=== PATIENT | male | born 1940 | race Caucasian/White ===

== ENCOUNTER 2021-01-08 08:07 | Day surgery (SDC) | payer MEDICARE, OTHER ==
[~2021-01-08 08:07] MED LIST: Lactated Ringers 1,000 ML IV SCH; Lidocaine 1%/Sod Bicarbonate in NS 8.4% 1 ML Syringe IDERM PRN; Sodium Chloride 0.9% 10 ML Syringe FLUSH PRN
--- NOTE | 2021-01-08 10:21 | PCM.PREANE ---
Preanesthetic Assessment - Procedure Proposed Procedure: EGD & colonoscopy - Anesthesia/Transfusion/Family Hx Anesthesia History: Prior Anesthesia Without Reaction Family History of Anesthesia Reaction: No Transfusion History: Prior Transfusion Without Reaction Intubation History: Unknown - Review of Systems General: No Symptoms Pulmonary: No Symptoms Cardiovascular: No Symptoms Gastrointestinal: No Symptoms Neurological: No Symptoms Other: Reports: Easy Bleeding, Easy Bruising, Diabetes - Physical Assessment NPO Status Date: 01/07/21 NPO Status Time: 20:40 Vital Signs: Last Vital Signs Temp 36.6 C 01/08/21 08:00 Pulse 57 L 01/08/21 08:00 Resp 16 01/08/21 08:00 BP 141/69 H 01/08/21 08:00 Pulse Ox 95 01/08/21 08:00 Height: 1.8 m Weight: 87.09 kg Mental Status: Alert & Oriented x3 Airway Class: Mallampati = 1 Dentition: Reports: Normal Dentition Thyro-Mental Finger Breadths: 3 Mouth Opening Finger Breadths: 5 ROM/Head Extension: Full Lungs: Clear to Auscultation, Normal Respiratory Effort Cardiovascular: Regular Rate, Regular Rhythm - Allergies Allergies/Adverse Reactions: Allergies Allergy/AdvReac Type Severity Reaction Status Date / Time JUDI Inhibitors Allergy Other Verified 01/08/21 08:56 adhesive tape Allergy Rash Verified 01/08/21 08:56 - Blood Blood Available: No - Anesthesia Plan Pre-Op Medication Ordered: None Beta Sparkle: Metoprolol - Acknowledgements Anesthesia Type Planned: MAC Pt an Appropriate Candidate for the Planned Anesthesia: Yes Alternatives and Risks of Anesthesia Discussed w Pt/Guardian: Yes Pt/Guardian Understands and Agrees with Anesthesia Plan: Yes PreAnesthesia Questionnaire HEENT History: Reports: Cataract Cardiovascular History: Reports: Afib, CAD, High Cholesterol, Hypertension, Other (See Below) Other Cardiovascular History: cardioverter, defibrilator Respiratory History: Reports: Other (See Below) Other Respiratory History: lung nodule Gastrointestinal History: Reports: Diverticulosis, Gastritis Psychiatric History: Reports: Depression Endocrine/Metabolic History: Reports: Diabetes, Type I - Past Surgical History HEENT Surgical History: Reports: Cataract Surgery, Naso-Sinus Surgery Cardiovascular Surgical History: Reports: Coronary Artery Bypass GI Surgical History: Reports: Cholecystectomy, Colonoscopy, EGD, Hernia, Inguinal Other Neurological Surgeries/Procedures: kyphoplasty Other Musculoskeletal Surgeries/Procedures:: rib fx, tietze disease, kyphoplasty - SUBSTANCE USE Tobacco Use Status *Q: Never Tobacco User Tobacco Use Within Last Twelve Months: No Recreational Drug Use History: No - HOME MEDS Home Medications: Home Meds Acetaminophen [Tylenol] 1 tab PO BEDTIME 01/07/21 [History] Apixaban [Eliquis] 5 mg PO DAILY 01/07/21 [History] Calcium Carbonate [Calcium] 600 mg PO DAILY 01/07/21 [History] Cholecalciferol (Vitamin D3) [Vitamin D3] 1 cap PO DAILY 01/07/21 [History] Cyanocobalamin (Vitamin B12) [Vitamin B12] 1 tab PO DAILY 01/07/21 [History] Eyelid Cleanser Combination 9 [Systane] 1 drop EYEBOTH ASDIRECTED 01/07/21 [History] Fluticasone Propionate [Flonase] 1 spray NASBOTH ASDIRECTED 01/07/21 [History] Glucosamine/D3/Boswellia Geraldine [Osteo Bi-Flex Caplet] 1 tab PO DAILY 01/07/21 [History] Losartan [Cozaar] 50 mg PO DAILY 01/07/21 [History] Metoprolol Tartrate 50 mg PO BID 01/07/21 [History] Multivitamin 1 tab PO DAILY 01/07/21 [History] Nitroglycerin [Nitrostat] 0.4 mg BUCCAL ASDIRECTED PRN 01/07/21 [History] Omeprazole Magnesium [Prilosec Otc] 20 mg PO DAILY 01/07/21 [History] amLODIPine Besylate [Norvasc] 10 mg PO DAILY 01/07/21 [History] atorvaSTATin Calcium [Lipitor] 20 mg PO DAILY 01/07/21 [History] sitaGLIPtin Phosphate [Januvia] 50 mg PO DAILY 01/07/21 [History] - CURRENT (IN HOUSE) MEDS Current Meds: Current Medications Lactated Ringer's (Ringers, Lactated) 1,000 mls @ 125 mls/hr IV ASDIRECTED HEATH Stop: 01/08/21 23:00 Last Admin: 01/08/21 08:55 Dose: 125 mls/hr Documented by: Lidocaine/Sodium Bicarbonate (Lidocaine 1%/Sod Bicarbonate In Ns 8.4% 1 Ml Syringe) 0.25 ml IDERM ONETIME PRN PRN Reason: Prior to IV Start Stop: 01/08/21 18:00 Sodium Chloride (Sodium Chloride 0.9% 10 Ml Syringe) 10 ml FLUSH ASDIRECTED PRN PRN Reason: Keep Vein Open Stop: 01/08/21 18:00
[2021-01-08] MEDS ORDERED: Propofol 200 MG/20 ML SDV ONE ×2 (10:29→10:52)
[2021-01-08] MEDS ORDERED: Lidocaine 1% 4 ML ONE ×2 (10:30→10:52)
[2021-01-08] MEDS ORDERED: Lactated Ringers 1,000 ML ONE (11:08)
--- NOTE | 2021-01-08 11:23 | PCM.OPNOTE ---
- General Post-Op/Procedure Note Date of Surgery/Procedure: 01/08/21 Operative Procedure(s): EGD and colonoscopy Findings: 1. hiatal hernia 2. Gastritis 3. Gastric polyps 4. duodenitis 5. Diverticulosis 6. Cecal polyp 7. Descending colon polyp x2 8. Rectal polyp Pre Op Diagnosis: positive FIT, diarrhea, decreased appetite, inability to wean PPI Post-Op Diagnosis: same Anesthesia Technique: MAC Primary Surgeon: Abbey Elizabeth Anesthesia Provider: Roxanne Castaneda Pathology: 1. Gastric antrum biopsies 2. Gastric polyps 3. duodenal biopsies 4. Cecal polyp 5. Descending colon polyp x2 6. Rectal polyp Fluid Replacement, Intraop: 1,000 Output, Urine Amount: 0 EBL in mLs: 0 Complications: none apparent Condition: Good
--- NOTE | 2021-01-08 11:26 | PCM.PRNOTE ---
- Free Text/Narrative Note: Operative Report Date of Procedure: January 08, 2021 Pre Op Diagnosis: positive FIT, diarrhea, decreased appetite, inability to wean PPI Post-Op Diagnosis: same Operative Procedures: 1. EGD with biopsy 2. Colonoscopy to the cecum Primary Surgeon: Abbey Elizabeth MD Anesthesia Provider: Roxanne Castaneda CRNA Anesthesia Technique: MAC IV Fluid Replacement, Intraop: 1000cc crystalloid Output, Urine Amount: 0cc EBL in mLs: 5cc Findings: 1. hiatal hernia 2. Gastritis 3. Gastric polyps 4. duodenitis 5. Diverticulosis 6. Cecal polyp 7. Descending colon polyp x2 8. Rectal polyp 9. Internal hemorrhoids Specimens: 1. Gastric antrum biopsies 2. Gastric polyps 3. duodenal biopsies 4. Cecal polyp 5. Descending colon polyp x2 6. Rectal polyp Drain/Tubes: None Indication: The patient is an 80-year-old gentleman who presented to the clinic with a positive FIT. The patient reported symptoms of decreased appetite and inability to wean a PPI . The patient was consented for a diagnostic EGD and colonoscopy. Risks of bleeding, and perforation were discussed, and the patient agreed to the risks and wished to proceed. Description of the procedure: The patient was taken back to the endoscopy suite, and placed in the left lateral decubitus position. A bite block was placed. The patient was sedated w ith MAC anesthesia. The Olympus video endoscope was inserted into the oropharynx and guided under direct vision into the esophagus, stomach, and duodenum. The duodenal bulb and second portion of the duodenum were inspected. The duodenal bulb was friable and consistent with duodenitis, this was biopsied with a cold biopsy forceps. The gastric antrum was inspected and cold biopsy forceps were used to take tissue samples for H. pylori. The scope was withdrawn to the stomach and retroflexed. There was no increased fluid, food or secretions in the upper gastrointestinal tract. There were polyps scattered throughout the body of the stomach and fundus measuring 2-6mm, both sessile and semipedunculated. These were biopsied with a cold biopsy forceps. No erosions or ulcers were noted. The scope was withdrawn to the esophagus. A this point we noted a 3-4cm hiatal hernia. There were no Barretts esophagus changes noted. The endoscope was then withdrawn. Next, anorectal examination was performed. No lesions, masses or hemorrhoids were noted externally or on palpation. The scope was placed into the rectum and advanced to cecum. Upon reaching the cecum, and the patients cecum was entered. There was minimal tortuosity of the colon. The ileocecal valve was well visualized and the appendiceal orifice identified. At this point, the scope was slowly withdrawn, paying attention to the mucosa. The patient had good bowel prep. A 3mm cecal polyp was noted and removed with a jumbo cold biopsy forceps. Two flat 2-3mm polyps were seen in the descending colon and removed with a jumbo cold biopsy forceps. A 4mm flat polyp was removed from the rectum with a jumbo cold biopsy forceps. In the rectum, scope was retroflexed and some hemorrhoidal tissue was noted. The scope was placed back in the lumen and excess air was aspirated. The scope was removed. The patient tolerated the procedure very well. Complications: None apparent Condition: The patient was transported to PACU in stable condition. Abbey Elizabeth MD General Surgery
--- NOTE | 2021-01-08 11:27 | PCM48HPAN ---
Post Anesthesia Note - EVALUATION WITHIN 48HRS OF ANESTHETIC Vital Signs in Normal Range: Yes Patient Participated in Evaluation: Yes Respiratory Function Stable: Yes Airway Patent: Yes Cardiovascular Function Stable: Yes Hydration Status Stable: Yes Pain Control Satisfactory: Yes Nausea and Vomiting Control Satisfactory: Yes Mental Status Recovered: Yes Vital Signs: Last Vital Signs Temp 36.6 C 01/08/21 08:00 Pulse 57 L 01/08/21 08:00 Resp 16 01/08/21 08:00 BP 141/69 H 01/08/21 08:00 Pulse Ox 95 01/08/21 08:00
== END 2021-01-08 12:34 | disposition home or self-care (01) ==
LOC: JD.SDS 08:07
PROVIDERS: ATTEND Surgery
DX: D12.0 Benign neoplasm of cecum (principal); D12.4 Benign neoplasm of descending colon; D12.8 Benign neoplasm of rectum; K29.50 Unspecified chronic gastritis without bleeding; K31.7 Polyp of stomach and duodenum; K44.9 Diaphragmatic hernia without obstruction or gangrene; K29.80 Duodenitis without bleeding; K57.30 Diverticulosis of large intestine without perforation or abscess without bleeding; K64.8 Other hemorrhoids; K63.89 Other specified diseases of intestine; I25.10 Atherosclerotic heart disease of native coronary artery without angina pectoris; I10 Essential (primary) hypertension; I48.0 Paroxysmal atrial fibrillation
CPT/HCPCS: 43239; 45380; 88305; J2704; J7120; 00813; 99100